=== PATIENT | male | born 1975 | race Caucasian/White ===

== ENCOUNTER 2024-05-01 12:38 | Emergency (ER) | payer MEDICAID ==
[~2024-05-01] VITALS: Ht 172.7 cm; Wt 75.0 kg
[2024-05-01 12:40] VITALS: BP 121/87; PULSE 70; RESP 16; TEMP 98.4; O2SAT 99
[2024-05-01] MEDS ORDERED: PERM60CR19 TOP (12:52)
[2024-05-01] MEDS ORDERED: KEN0.1O TOP (12:55)
[2024-05-01] MEDS ORDERED: HYDR-3686 PO (12:55)
== END 2024-05-01 13:03 | disposition home or self-care (01) ==
LOC: ER 12:39
DX: B86 Scabies (principal); Z79.899 Other long term (current) drug therapy
CPT/HCPCS: 99283